=== PATIENT | female | born 1940 | race Caucasian/White ===

== ENCOUNTER 2019-03-23 06:41 | Observation (INO) | payer MEDICARE ==
[~2019-03-23] VITALS: Ht 152.4 cm; Wt 58.7 kg
[~2019-03-23 06:41] MED LIST: ADLT ASA LOW81 MG PO; ALENDRONATE70 MG PO; ATENOLOL25 MG OR; ATENOLOL50 MG PO; BONIVA150 MG PO; CARBAMAZEPIN200 MG PO; CARDURA1 MG PO; CHILD'S ASA81 MG OR; CRESTOR10 MG PO; DITROPAN XL5 MG PO; DITROPAN5 MG/TA1 PO; DOXAZOSIN1 MG PO; FLUARIX QUADRIV1 IN1 IM; FLUARIX QUADRIV1 IN2 IM; FLUARIX QUADRIV1 INJ IM; FLULAVAL IM; FLUOXETINE20 MG PO; FLUOXETINE40 MG PO; HYDROCO/APAP1 T10 PO; INDERAL10 MG PO; LEVOTHYROXIN25 MC1 PO; LEVOTHYROXIN25 MCG PO; LORTAB 5/3255 MG PO; LORTAB 7.5 PO; LORTAB 7.57.5 MG PO; LORTAB5 OR; LOVASTATIN40 M1 PO; MEGESTROL AC20 MG PO; METOCLOPRAM5 MG PO; OXYBUTYNIN5 MG PO; PRAVASTATIN40 MG PO; TEGRETOL OR; TEGRETOL PO; TYLENOL # 31 TA1 PO; VALACYCLOVIR1 GM OR; VALPROIC ACD250 M3 OR; VALPROIC ACD250 M3 PO; [UNRECOGNIZED DRUG - OTHER] OR; [UNRECOGNIZED DRUG - OTHER] PO
[2019-03-23 07:04] LABS: HEMOGLOBIN 12.7 g/dl (12.0-16.0); IMMATURE GRANULOCYTES 2.9 % (0.0-5.0); MEAN CELL VOLUME 94.7 fL CALC (80.0-100.0); MEAN CORPUSCULAR HGB 30.8 pG CALC (26.0-32.0); MEAN CORPUSCULAR HGB CONC 32.6 g/L CALC (32.0-36.0); NEUT# 6.35 thou/uL (2.00-7.15); RED BLOOD COUNT 4.12 mill/uL (4.20-5.60); RED CELL DISTRI WIDTH 14.1 % (11.5-15.5)
[2019-03-23 07:24] LABS: ALBUMIN 4.5 g/dL (3.2-5.0); CREATININE 1.1 mg/dL (0.5-1.0); POTASSIUM 3.9 mmol/l (3.5-5.1); TOTAL PROTEIN 7.3 g/dL (6.3-8.2)
[2019-03-23 07:25] LABS: BILIRUBIN, TOTAL 0.5 mg/dL (0.0-1.4)
[2019-03-23 09:22] LABS: TSH, 3RD GENERATION 3.44 uIU/mL (0.47 - 4.68)
[2019-03-23 09:40] VITALS: BP 156/46
[2019-03-23 15:11] LABS: URINE BLOOD DIPSTICK NEGATIVE (NEGATIVE); URINE COLOR YELLOW; URINE GLUCOSE - DIPSTICK NEGATIVE (NEGATIVE); URINE KETONE 15 mg/dL (NEGATIVE); URINE LEUK ESTERASE TRACE (NEGATIVE); URINE NITRITE - DIPSTICK NEGATIVE (Negative); URINE PROTEIN - DIPSTICK TRACE mg/dL (NEG-TRACE); URINE SPECIFIC GRAVITY >=1.030; URINE UROBILINOGEN - DIPSTICK 0.2 E.U./dL (0.2)
[2019-03-23 15:12] LABS: URINE BILIRUBIN - DIPSTICK NEGATIVE (NEGATIVE)
[2019-03-23 16:00] VITALS: BP 176/79
[2019-03-23 19:29] VITALS: BP 158/63
[2019-03-23 23:47] VITALS: BP 159/65
[2019-03-24 04:15] VITALS: BP 134/53
[2019-03-24 06:39] LABS: ANION GAP 11 (6-22 (CALC)); BUN 13 mg/dL (8-23); BUN/CREATININE RATIO 19 (12-20 (CALC)); CALCULATED LDLCHOLESTEROL 92 mg/dL (62-129 (CALC)); CARBON DIOXIDE 23 mmol/l (22-30); CHLORIDE 109 mmol/l (95-108); CREATININE 0.7 mg/dL (0.5-1.0); GFR > 60 ML/MIN (>=60 (CALC)); GFR FOR AFR.AMER. > 60 ML/MIN (>=60 (CALC)); HDL CHOLESTEROL 58 mg/dL (>=40); POTASSIUM 3.2 mmol/l (3.5-5.1); SODIUM 140 mmol/l (137-146); TOTAL CHOLESTEROL 176 mg/dl (0-199); TOTAL TRIGLYCERIDES 130 mg/dl (30-149); VLDL CHOLESTROL 26 mg/dl (0-48 (CALC))
[2019-03-24 06:43] LABS: HEMATOCRIT 34.7 % (37.0-47.0); IMMATURE GRANULOCYTES 0.5 % (0.0-5.0); MEAN CELL VOLUME 95.9 fL CALC (80.0-100.0); MEAN CORPUSCULAR HGB 30.4 pG CALC (26.0-32.0); MEAN CORPUSCULAR HGB CONC 31.7 g/L CALC (32.0-36.0); NEUT# 7.02 thou/uL (2.00-7.15); RED BLOOD COUNT 3.62 mill/uL (4.20-5.60); RED CELL DISTRI WIDTH 14.3 % (11.5-15.5)
[2019-03-24 08:03] VITALS: BP 168/75
[2019-03-24 12:00] VITALS: BP 166/45
[2019-03-24 15:17] VITALS: BP 168/78
[2019-03-24 19:00] VITALS: BP 143/66
[2019-03-25] VITALS (8 sets, daily range): BP systolic 114–200; BP diastolic 57–100
[2019-03-25 05:19] LABS: HEMATOCRIT 37.3 % (37.0-47.0); IMMATURE GRANULOCYTES 0.6 % (0.0-5.0); MEAN CELL VOLUME 95.6 fL CALC (80.0-100.0); MEAN CORPUSCULAR HGB 30.8 pG CALC (26.0-32.0); MEAN CORPUSCULAR HGB CONC 32.2 g/L CALC (32.0-36.0); NEUT# 6.02 thou/uL (2.00-7.15); RED BLOOD COUNT 3.9 mill/uL (4.20-5.60); RED CELL DISTRI WIDTH 14.6 % (11.5-15.5)
[2019-03-25 05:43] LABS: ANION GAP 13 (6-22 (CALC)); BUN 5 mg/dL (8-23); BUN/CREATININE RATIO 8 (12-20 (CALC)); CARBON DIOXIDE 24 mmol/l (22-30); CHLORIDE 112 mmol/l (95-108); CREATININE 0.6 mg/dL (0.5-1.0); GFR > 60 ML/MIN (>=60 (CALC)); GFR FOR AFR.AMER. > 60 ML/MIN (>=60 (CALC)); POTASSIUM 3.7 mmol/l (3.5-5.1); SODIUM 145 mmol/l (137-146)
[2019-03-25] MEDS ORDERED: ALENDRONATE70 MG PO (16:06)
[2019-03-25] MEDS ORDERED: CARBAMAZEPIN200 M1 PO (16:07)
[2019-03-25] MEDS ORDERED: FLUOXETINE20 MG PO (16:07)
[2019-03-25] MEDS ORDERED: ALTOPREV40 MG PO (16:09)
[2019-03-25] MEDS ORDERED: HYDROCO/APAP1 T10 PO (16:09)
[2019-03-25] MEDS ORDERED: DITROPAN PO (16:10)
[2019-03-25] MEDS ORDERED: INDERAL10 M1 PO (16:11)
[2019-03-25] MEDS ORDERED: VALPROIC ACD250 M3 PO (16:11)
[2019-03-26] VITALS (8 sets, daily range): BP systolic 140–174; BP diastolic 47–75
[2019-03-26 06:49] LABS: HEMATOCRIT 34.7 % (37.0-47.0); HEMOGLOBIN 11.3 g/dl (12.0-16.0); IMMATURE GRANULOCYTES 0.5 % (0.0-5.0); MEAN CELL VOLUME 94.8 fL CALC (80.0-100.0); MEAN CORPUSCULAR HGB 30.9 pG CALC (26.0-32.0); MEAN CORPUSCULAR HGB CONC 32.6 g/L CALC (32.0-36.0); NEUT# 6.01 thou/uL (2.00-7.15); RED BLOOD COUNT 3.66 mill/uL (4.20-5.60); RED CELL DISTRI WIDTH 14.3 % (11.5-15.5)
[2019-03-26 06:57] LABS: ANION GAP 10 (6-22 (CALC)); BUN 3 mg/dL (8-23); BUN/CREATININE RATIO 4 (12-20 (CALC)); CALCULATED LDLCHOLESTEROL 72 mg/dL (62-129 (CALC)); CARBON DIOXIDE 24 mmol/l (22-30); CHLORIDE 108 mmol/l (95-108); CHOLESTEROL HDL RATIO 2.7 (<4.4 (CALC)); CREATININE 0.8 mg/dL (0.5-1.0); GFR > 60 ML/MIN (>=60 (CALC)); GFR FOR AFR.AMER. > 60 ML/MIN (>=60 (CALC)); HDL CHOLESTEROL 58 mg/dL (>=40); POTASSIUM 3.1 mmol/l (3.5-5.1); SODIUM 139 mmol/l (137-146); TOTAL CHOLESTEROL 158 mg/dl (0-199); TOTAL TRIGLYCERIDES 140 mg/dl (30-149); VLDL CHOLESTROL 28 mg/dl (0-48 (CALC))
[2019-03-27] VITALS: BP 168/74
[2019-03-27 03:40] VITALS: BP 167/87
[2019-03-27 05:42] LABS: HEMATOCRIT 35.1 % (37.0-47.0); HEMOGLOBIN 11.3 g/dl (12.0-16.0); IMMATURE GRANULOCYTES 0.6 % (0.0-5.0); MEAN CELL VOLUME 96.2 fL CALC (80.0-100.0); MEAN CORPUSCULAR HGB CONC 32.2 g/L CALC (32.0-36.0); NEUT# 4.22 thou/uL (2.00-7.15); RED BLOOD COUNT 3.65 mill/uL (4.20-5.60); RED CELL DISTRI WIDTH 14.5 % (11.5-15.5)
[2019-03-27 05:44] LABS: BUN 3 mg/dL (8-23); BUN/CREATININE RATIO 4 (12-20 (CALC)); CARBON DIOXIDE 25 mmol/l (22-30); CHLORIDE 112 mmol/l (95-108); CREATININE 0.7 mg/dL (0.5-1.0); GFR > 60 ML/MIN (>=60 (CALC)); GFR FOR AFR.AMER. > 60 ML/MIN (>=60 (CALC)); SODIUM 145 mmol/l (137-146)
[2019-03-27 05:48] LABS: ANION GAP 12 (6-22 (CALC)); POTASSIUM 3.8 mmol/l (3.5-5.1)
[2019-03-27 09:18] VITALS: BP 175/89
[2019-03-27 11:30] VITALS: BP 159/88
[2019-03-27 16:00] VITALS: BP 162/78
[2019-03-27 18:55] VITALS: BP 165/98
[2019-03-28 03:30] VITALS: BP 133/63
[2019-03-28 09:11] VITALS: BP 163/66
[2019-03-28 11:00] VITALS: BP 137/57
[2019-03-28 15:10] VITALS: BP 141/63
[2019-03-28 20:18] VITALS: BP 166/67
[2019-03-29 04:22] VITALS: BP 153/58
[2019-03-29 06:56] LABS: HEMATOCRIT 32.2 % (37.0-47.0); HEMOGLOBIN 10.4 g/dl (12.0-16.0); IMMATURE GRANULOCYTES 0.3 % (0.0-5.0); MEAN CELL VOLUME 95.5 fL CALC (80.0-100.0); MEAN CORPUSCULAR HGB 30.9 pG CALC (26.0-32.0); MEAN CORPUSCULAR HGB CONC 32.3 g/L CALC (32.0-36.0); NEUT# 5.62 thou/uL (2.00-7.15); RED BLOOD COUNT 3.37 mill/uL (4.20-5.60); RED CELL DISTRI WIDTH 14.2 % (11.5-15.5)
[2019-03-29 07:07] LABS: BUN 10 mg/dL (8-23); BUN/CREATININE RATIO 18 (12-20 (CALC)); CARBON DIOXIDE 30 mmol/l (22-30); CHLORIDE 107 mmol/l (95-108); CREATININE 0.6 mg/dL (0.5-1.0); GFR > 60 ML/MIN (>=60 (CALC)); GFR FOR AFR.AMER. > 60 ML/MIN (>=60 (CALC)); SODIUM 144 mmol/l (137-146)
[2019-03-29 07:08] LABS: ANION GAP 10 (6-22 (CALC)); POTASSIUM 2.8 mmol/l (3.5-5.1)
[2019-03-29 10:04] VITALS: BP 175/64
[2019-03-29 11:21] VITALS: BP 153/75
== END 2019-03-29 14:28 ==
LOC: ED 06:41 → ED-I 08:00 → ED 08:22 → MS2 08:23
PROVIDERS: Emergency Medicine; ADMIT Internal Medicine Geriatric Medicine; ATTEND Internal Medicine Geriatric Medicine
PROC: 0HQ1XZZ Repair Face Skin, External Approach (ICD-10-PCS; principal; 2019-03-23)
DX: R55 Syncope and collapse (principal); E86.0 Dehydration; R41.82 Altered mental status, unspecified; R53.1 Weakness; S01.81XA Laceration without foreign body of other part of head, initial encounter; G40.409 Other generalized epilepsy and epileptic syndromes, not intractable, without status epilepticus; I10 Essential (primary) hypertension; M19.90 Unspecified osteoarthritis, unspecified site; G89.29 Other chronic pain; M54.5 Low back pain; F41.1 Generalized anxiety disorder; F32.9 Major depressive disorder, single episode, unspecified; E03.9 Hypothyroidism, unspecified; I25.10 Atherosclerotic heart disease of native coronary artery without angina pectoris; R62.7 Adult failure to thrive; W19.XXXA Unspecified fall, initial encounter; Y92.009 Unspecified place in unspecified non-institutional (private) residence as the place of occurrence of the external cause; Z68.25 Body mass index [BMI] 25.0-25.9, adult

== ENCOUNTER 2020-11-09 12:10 | Emergency (ER) | payer MEDICARE ==
[~2020-11-09] VITALS: Ht 152.4 cm; Wt 65.0 kg
[~2020-11-09 12:10] MED LIST changes: +ALTOPREV40 MG PO; +CARBAMAZEPIN200 M1 PO; +DITROPAN PO; +INDERAL10 M1 PO
[2020-11-09 14:18] VITALS: BP 123/71
== END 2020-11-09 14:18 | disposition home or self-care (01) ==
LOC: ED 12:10
PROC: 2W3CX1Z Immobilization of Right Lower Arm using Splint (ICD-10-PCS; principal; 2020-11-09)
DX: S52.501A Unspecified fracture of the lower end of right radius, initial encounter for closed fracture (principal); S52.601A Unspecified fracture of lower end of right ulna, initial encounter for closed fracture; I10 Essential (primary) hypertension; G40.909 Epilepsy, unspecified, not intractable, without status epilepticus; W01.0XXA Fall on same level from slipping, tripping and stumbling without subsequent striking against object, initial encounter; Y93.K1 Activity, walking an animal; Y92.009 Unspecified place in unspecified non-institutional (private) residence as the place of occurrence of the external cause